=== PATIENT | male | born 1960 | race Caucasian/White ===

== ENCOUNTER 2024-10-16 11:07 | Outpatient (CLI) | payer OTHER ==
[2024-10-16 11:36] LABS: MEAN PLATELET VOLUME 8.4 FL (7.4-10.4); RED CELL DISTRIBUTION WIDTH 14.3 % (11.5-14.5)
[2024-10-16 11:56] LABS: CREATININE 1.17 MG/DL (0.60-1.10); TOTAL CARBON DIOXIDE 29.5 MMOL/L (24-32); eGFR 63 ML/MIN
== END 2024-10-16 23:59 | disposition home or self-care (01) ==
LOC: LAB 11:07
PROVIDERS: ATTEND Urology
DX: Z01.812 Encounter for preprocedural laboratory examination (principal); N40.1 Benign prostatic hyperplasia with lower urinary tract symptoms; N13.8 Other obstructive and reflux uropathy; R82.71 Bacteriuria; R33.8 Other retention of urine
CPT/HCPCS: 36415; 80048; 85025; 87077; 87088; 87186